=== PATIENT | female | born 1940 | race Caucasian/White ===

== ENCOUNTER → 2018-10-03 10:38 | Outpatient (CLI) | payer MEDICARE ==
--- NOTE | 2018-10-03 18:07 | EC ---
PATIENT:WALESKA HOUGH DATE OF SERVICE: 10/03/18 SEX: F MEDICAL RECORD: [id number] DATE OF : 40 LOCATION:[facility] AGE OF PATIENT: 77 ADMISSION DATE: 10/03/18 REFERRING PHYSICIAN: INTERPRETING PHYSICIAN: NAM GONZALEZ MD ECHOCARDIOGRAM REPORT ECHO CHARGES 4 ECHO COMPLETE Date: 10/03/18 CLINICAL DIAGNOSIS: ANGINA/OLIVER/SOB/MURMUR H/O HTN ECHOCARDIOGRAPHIC MEASUREMENTS (adult normal given) AC root (d.<3.7cm) 2.8 cm LV Septum d (<1.2 cm> 1.5 cm Valve Excursion 1.8 cm LV Septum (systole) 1.8 cm Left Atria (s.<4.0cm> 4.1 cm LVPW d(<1.2cm) 0.9 cm RV (d.<2.3cm) 2.2 cm LVPW (sytole) 1.4 cm LV diastole(<5.6CM) 5.1 cm MV E-F(>70mm/sec) cm LV systole 3.2 cm LVOT Diameter 1.8 cm MV exc.(>10mm) cm Est.ejection fraction (50-75%) % DOPPLER: LVIT cm/sec A 50.0 cm/sec E 78.0 cm/sec LA cm/sec RVSP 49.0 mmHg LVOT 78.0 cm/sec AOP1/2T 882.0m/s Asc. Ao 151 cm/sec RVOT 36.0 cm/sec RA cm/sec PA 63.0 cm/sec AV Gradient Peak 9.1 mmHg AV Mean 4.6 mmHg AV Area 1.3 cm MV Gradient Peak 2.7 mmHg MV Mean 0.87 mmHg MV Area cm COMMENTS: OP - HC Farm Machinery Mechanic: 1 HOSSEIN RIVASOE Identity Access Management Architect: 1 Dr. Gonzalez TAPE# PACS Pericardial Effusion N DATE OF SERVICE: 10/03/2018 FINDINGS: 1. Left ventricular chamber size is within normal limits. Left ventricular systolic function is normal. Overall ejection fraction is estimated at 55%. 2. Left atrium is enlarged at 4.1 cm. Right atrium and right ventricular chamber sizes are as well mildly dilated. 3. Valvular structures have normal structure and motion. 4. Doppler interrogation reveals moderate aortic insufficiency, moderate mitral regurgitation, and moderate tricuspid regurgitation. No other valvular ECHOCARDIOGRAM REPORT [id number] HOUGH,WALESKA insufficiency or stenosis. Pulmonary systolic pressure is estimated at 49 mmHg. 5. No evidence of pericardial effusion or left ventricular thrombus. TRANSINT:[id number] Voice Confirmation ID: [id number] DOCUMENT ID: [id number] NAM GONZALEZ MD at 1807 CC: [id number] DICTATION DATE: 10/03/18 1630 CUTTING MACHINE TENDER: 10/03/18 1739 [facility] [address] [id number]
--- NOTE | 2018-10-08 09:50 | ST ---
PATIENT:WALESKA HOUGH MEDICAL RECORD: [id number] SEX: F LOCATION:[facility] ORDER #: ADMISSION DATE: 10/03/18 AGE OF PATIENT: 77 REFERRING PHYSICIAN: INTERPRETING PHYSICIAN: NAM GOLDEN MD DATE OF SERVICE: 10/03/2018 PROCEDURE: Nuclear stress test. INDICATION: Angina, shortness of breath, hypertension, hyperlipidemia. She was exercised on standard Lexiscan protocol with 33 mCi of sestamibi injected at peak stress, 11 mCi used previously for rest images. FINDINGS: Gated SPECT reveals a preserved ejection fraction at 67% with good wall motioning and thickening and brightening throughout all segments. SPECT imaging: Cardiolite was used as myocardial perfusion agent. There is reversibility anteroapically. This includes the basal, mid, apical, anterior segments as well as the apex itself. The degree of reversibility is mild to moderate. The amount of myocardium involved is moderate. OVERALL IMPRESSION: 1. This is an intermediate risk abnormal nuclear stress test, reversible ischemia anteroapically. 2. Gated SPECT reveals preserved ejection fraction at 67%. In this patient with ongoing symptomatology, the current scan does suggest the presence of hemodynamically significant coronary artery disease. TRANSINT:[id number] Voice Confirmation ID: [id number] DOCUMENT ID: [id number] NAM GOLDEN MD at 0950 CC: [id number] DICTATION DATE: 10/03/18 1644 MECHANICAL MAINTENANCE FOREMAN: 10/04/18 0901 DEP CLI 10/03/18 [place] [id number]
== END | disposition home or self-care (01) ==
LOC: D.HCCARDIO 10:38
PROVIDERS: ATTEND Internal Medicine Interventional Cardiology
DX: I20.9 Angina pectoris, unspecified (principal)

== ENCOUNTER 2018-10-15 07:28 | Outpatient (CLI) | payer MEDICARE ==
[~2018-10-15] VITALS: Ht 157.5 cm; Wt 72.7 kg
--- NOTE | ~2018-10-15 | HEMODYNAMI ---
PATIENT:WALESKA HOUGH MEDICAL RECORD: [id number] : 40 LOCATION:[facility] ADMISSION DATE: 10/15/18 Generatedon:10/15/201811:19 Patient name: WALESKA HOUGH Patient #: [id number] SSN: : 1940 Date of study: 10/15/2018 Page: Of Hemodynamic Procedure Report Patient Data Patient Demographics Procedure consent was obtained First Name: WALESKA Gender: Female Last Name: FR[place] : 1940 Patient #: [id number] Age: 77 year(s) Race: Unknown Additional ID: [id number] Contact details [address]: [address] [place] [address] rd State: [place] City: [place] Zip code: [address] Past Medical History Allergies Allergen Reaction Date Comments Reported Other allergy 10/15/2018 PCN Admission Admission Data Admission Date: 10/15/2018 Admission Time: 7:28 Height (in.): 61.81 BSA: 1.73 (m2) Height (cm.): 157 BMI: 29.21 (kg/m2) Weight (lbs.): 158.73 Weight (kg.): 72 Lab Results Lab Result Date: 10/15/2018 Lab Result Time: 0:00 Biochemistry Name Units Result Min Max BUN mg/dl 23 --(----)-* 7 18 Creatinine mg/dl 0.9 --(-*--)-- 0.6 1.3 Procedure Procedure Types Cath Procedure Diagnostic Procedure LHC LH w/Coronaries FFR/IVUS Intra-Coronary IVUS Initial Procedure Description Procedure Date Procedure Date: 10/15/2018 Procedure Start Time: 11:05 Procedure End Time: 11:17 Procedure Staff Name Function Michi Gonzalez MD Performing Physician Racheal Anderson RT Monitor Hyacinth Bennett RN Nurse Denise Yusuf RT Scrub Procedure Data Cath Procedure Fluoroscopy Diagnostic fluoroscopy Total fluoroscopy Time: 2.9 time: 2.9 min min Diagnostic fluoroscopy Total fluoroscopy dose: 412 dose: 412 mGy mGy Contrast Material Contrast Material Type Amount (ml) Isovue 300 65 Entry Location Entry Primary Successful Side Size Upsize Upsize Entry Closure Succes sful Closure Location (Fr) 1 (Fr) 2 (Fr) Remarks Device Remarks Femoral Right 5 Fr 6 Fr artery Short Estimated blood loss: 10 ml Diagnostic catheters Device Type Used For End Catheter Placement MULTIPACK Pigtail 5 Fr Procedure catheter MULTIPACK JL 4.0 5Fr Procedure catheter MULTIPACK 3DRC 5Fr Procedure catheter Procedure Complications No complications Procedure Medications Medication Administration Route Dosage 0.9% NaCl I.V. 100 ml/hr Oxygen etCO2 Nasal cannula 2 l/min Lidocaine 2% added to field 20 Heparin Flush Bag added to field 2 bags (1000units/500ml NS) Versed I.V. 2 mg Fentanyl I.V. 50 mcg Fentanyl I.V. 50 mcg Hemodynamics Rest BSA: 1.73 (m2) O2 Consumption: Estimated: 144.69 (ml/min) O2 Consumption indexed : Estimated:83.64 (ml/min/m) Heart Rate: 52 (bpm) Pressure Samples Time Site Value (mmHg) Purpose Heart Use Rate(bpm) 11:06 LV 102/4,13 Snapshot 81 11:07 AO 103/57(79) Pullback 73 Gradients Valve Time Site Site 2 Mean SEP/DFP Peak To Heart Use 1 (mmHg) (sec/min) Peak Rate (mmHg) (bpm) Aortic 11:07 LV AO 73 103/57(79) Snapshots Pre Cath Intra NCS Post Cath Vital Signs Time Heart Resp SPO2 etCO2 NIBP (mmHg) Rhythm Pain Sedation Rate (ipm) (%) (mmHg) Status Level (bpm) 10:47:13 54 18 99 34.5 Measuring SB 0 (11) 10(A) , No pain 10:47:31 52 17 100 31.5 145/69(112) SB 0 (11) 10(A) , No pain 10:51:52 62 17 100 3.7 153/76(128) SB 0 (11) 10(A) , No pain 10:55:59 57 18 99 13.4 121/72(98) SB 0 (11) 10(A) , No pain 11:00:13 52 18 99 17.2 128/71(97) SB 0 (11) 10(A) , No pain 11:04:23 64 17 99 8.9 110/76(101) SB 0 (11) 10(A) , No pain 11:09:22 65 19 98 36.7 Measuring SB 0 (11) 10(A) , No pain 11:09:37 62 18 98 37.5 118/65(87) SB 0 (11) 10(A) , No pain 11:13:51 60 11 99 30.8 109/67(83) SB 0 (11) 10(A) , No pain Medications Time Medication Route Dose Verified Delivered Reason Notes Eff ectiveness by by 10:48:03 0.9% NaCl I.V. 100 Michi Hyacinth used for ml/hr Carlos Bennett safety professional 10:48:11 Oxygen etCO2 2 Michi Hyacinth used for Nasal l/min Carlos Bennett procedure cannula RN 10:48:16 Lidocaine 2% added 20ml Michi Michi for local to vial Carlos Gonzalez MD anesthetic field 10:48:21 Heparin Flush added 2 Michi Michi used for Bag to bags Carlos Gonzalez MD procedure (1000units/500ml field NS) 11:03:57 Versed I.V. 2 mg Michi Hyacinth for Carlos Bennett sedation RN 11:04:03 Fentanyl I.V. 50 Michi Hyacinth for mcg Carlos Bennett sedation RN 11:09:47 Fentanyl I.V. 50 Michi Hyacinth for mcg Carlos Bennett sedation site leader Log Time Note 10:33:36 Patient Height : 61.81 inches 10:33:40 Patient Weight : 158.73 lbs 10:34:21 Lab Result : BUN 23 mg/dl 10:34:21 Lab Result : Creatinine 0.9 mg/dl 10:34:50 Diagnostic Cath status Elective 10:34:52 Denise Yusuf RT(R) sent for patient. Start room use. 10:34:54 Time tracking: Regular hours (M-F 7:00 - 5:00) 10:34:59 Plan of Care:Hemodynamics will remain stable., Cardiac rhythm will remain stable., Comfort level will be maintained., Respiratory function will remain adequate., Patient/ family verbilizes understanding of procedure., Procedure tolerated without complication., Recovers from procedure without complications.. 10:35:37 2) 60-89 Mildly reduced kidney function, and other findings (as for stage 1) point to kidney disease. 10:35:58 Maximum allowable contrast does (3.7 X eGFR X 0.75)216 ml. 10:45:25 Vital chart was started 10:48:03 0.9% NaCl 100 ml/hr I.V. was administered by Hyacinth Bennett RN; used for procedure; 10:48:11 Oxygen 2 l/min etCO2 Nasal cannula was administered by Hyacinth Bennett RN; used for procedure; 10:48:16 Lidocaine 2% 20ml vial added to field was administered by Michi Gonzalez MD; for local anesthetic; 10:48:21 Heparin Flush Bag (1000units/500ml NS) 2 bags added to field was administered by Michi Gonzalez MD; used for procedure; 10:49:07 Patient received from Pre/Post Procedure Room to CCL 2 Alert and oriented. Tansferred to table in Supine position. 10:49:08 Warm blankets applied, and mina hugger turned on for patient comfort. 10:49:09 Correct patient and procedure confirmed by team. 10:49:10 Signed procedure consent form obtained from patient. 10:49:11 ECG and BP/O2 sat monitors applied to patient. 10:49:14 Baseline sample Acquired. 10:49:20 Rhythm: sinus rhythm 10:49:22 Full Disclosure recording started 10:49:56 H&P Date Dictated: 10/03/2018 Within 30 days and on chart.. 10:50:14 Pre-procedure instructions explained to patient. 10:50:17 Family in waiting room. 10:50:19 Patient NPO since Midnight. 10:50:30 Patient allergic to Other allergyPCN 10:50:33 Is the patient allergic to Iodine/contrast media? No. 10:50:40 Is patient on blood thinner?No 10:50:54 Patient diabetic? No. 10:51:00 Snore? Yes 10:51:02 Sleep apnea? No 10:51:26 IV patent on arrival in left forearm with 0.9% NaCl at [facility]. 10:51:30 Lab results completed and on chart. 10:51:34 Right groin area was prepped with chlora-prep and draped in sterile fashion 10:51:36 Alarms reviewed by R. N. 10:51:36 Sharps counted by scrub and verified by R.N. 10:51:37 Physician paged 10:57:50 Zero performed for pressure channel P1 11:03:11 Physician arrived 11:03:11 --------ALL STOP TIME OUT------ 11:03:12 Final Timeout: patient, procedure, and site verified with staff and physician. All members of the team are in agreement. 11:03:14 Right groin site verified by team. 11:03:22 Fire Safety Assessment: A--An alcohol-based skin anteseptic being used preoperatively., C--Open oxygen or nitrous oxide is being used., D--An ESU, laser, or fiber-optic light is being used. 11:03:30 Physical assessment completed. ASA score P 3 - A patient with severe systemic disease as per Michi Gonzalez MD. 11:03:36 Sedation plan: IV Moderate Sedation Medication:Versed, Fentanyl 11:03:57 Versed 2 mg I.V. was administered by Hyacinth Bennett RN; for sedation; 11:04:03 Fentanyl 50 mcg I.V. was administered by Hyacinth Bennett RN; for sedation; 11:04:57 Use device set Femoral Dx 11:04:58 ACIST Syringe (18654) opened to sterile field. 11:04:59 Bag Decanter (2002S) opened to sterile field. 11:05:00 Medline Cath Pack ([id number]) opened to sterile field. 11:05:01 ACIST Hand Control (85331) opened to sterile field. 11:05:02 ACIST Manifold (25325) opened to sterile field. 11:05:04 DIAGNOSTIC Multipack 5Fr catheter set (FY9657) opened to sterile field. 11:05:05 Tegaderm 4 x 4 (1626W) opened to sterile field. 11:05:07 SHEATH 5FR Raymond (RXS640) opened to sterile field. 11:05:08 EMERALD Guide Wire (694-423) opened to sterile field. 11:05:10 Procedure started. 11:05:53 Local anesthetic to right femoral artery with Lidocaine 2% by Michi Gonzalez MD.INITIAL ACCESS ONLY 11:06:04 A 5 Fr sheath was inserted into the Right Femoral artery 11:06:11 J wire advanced. 11:06:19 A MULTIPACK Pigtail 5 Fr catheter was advanced over the wire and used for Procedure. 11:06:53 LV angiography performed. 11:06:59 EF : 50 % 11:07:01 Catheter removed. 11:07:10 A MULTIPACK JL 4.0 5Fr catheter was advanced over the wire and used for Procedure. 11:07:24 LCA angiography performed. 11:08:55 A MULTIPACK 3DRC 5Fr catheter was advanced over the wire and used for Procedure. 11:08:59 RCA angiography performed. 11:09:43 Catheter removed. 11:09:47 Fentanyl 50 mcg I.V. was administered by Hyacinth Bennett RN; for sedation; 11:10:14 Dexter [place] IVUS Catheter (51144N) opened to sterile field. 11:10:15 SHEATH 6FR Raymond (DBZ004) opened to sterile field. 11:10:16 CHOICE PT Extra Support 182cm wire ([id number]) opened to sterile field. 11:10:17 INFLATOR Merit BasixCompak (OP0856) opened to sterile field. 11:10:48 Sheath upsized to a 6 Fr Short. 11:10:53 6 Fr XBLAD3.5 guide catheter was inserted over the wire 11:11:35 choice pt ex wire advanced. 11:11:54 Wire advanced across lesion. 11:12:07 IVUS catheter advanced over wire. 11:13:23 IVUS catheter removed over wire. 11:13:40 EXOSEAL 6Fr (EX600) opened to sterile field. 11:13:58 Procedure ended.(Physican Out) 11:14:35 Fluoroscopy time 02.90 minutes. 11:14:39 Fluoroscopy dose: 412 mGy 11:14:39 Flurop Dose total: 412 11:14:43 Contrast amount:Isovue 300 65ml. 11:14:45 Sharps counted by scrub and verified by R.N. 11:14:47 Insertion/operative site no bleeding no hematoma. 11:14:54 Post-op/insertion site Right Femoral artery dressed using a 4 x 4 and Tegaderm. 11:14:59 Post Procedure Pulses reassessed and unchanged 11:15:02 Post-procedure physical assessment completed. ASA score P 2 - A patient with mild systemic disease as per Michi Gonzalez MD. 11:15:08 Post procedure rhythm: unchanged. 11:15:11 Estimated blood loss: 10 ml 11:15:13 Post procedure instruction explained to patient.Patient verbalizes understanding. 11:15:32 Procedure type changed to Cath procedure, Diagnostic procedure, LHC, LHC w/Coronaries, FFR/IVUS, Intra-Coronary IVUS Initial 11:15:41 Procedure and supply charges have been captured, reviewed, submitted and are correct. 11:16:56 Procedure Complication : No complications 11:16:59 Vital chart was stopped 11:17:00 See physician's report for complete and final results. 11:17:01 Report given to Pre/Post Procedure Room. 11:17:10 Patient transfered to Pre/Post Procedure Room with Stretcher. 11:17:13 Procedure ended. 11:17:13 Full Disclosure recording stopped 11:17:16 End room use (Document Last) Device Usage Item Name Manufacture Quantity Catalog Number Hospital Part Current Minim al Lot# / Charge Number Stock Stock Serial# Code ACIST Acist 1 19232 [id number] 324554 836319 20 Syringe Medical (17737) Systems Inc Bag Microtek 1 290572 77100 785266 5 Decanter Medical Inc. () Medline Medline 1 [id number] 239550 36998 580050 5 Cath Pack ([id number]) ACIST Hand Acist 1 84709 023650 697955 193151 5 Control Medical (13042) Systems Inc ACIST Acist 1 39344 914531 786201 405593 5 Manifold Medical (48639) Systems Inc DIAGNOSTIC Cardinal 1 [id number] 798853 58533 346309 30 Multipack Health 5Fr catheter set (DA8152) Tegaderm 4 3M 1 1626W 193812 995828 347207 5 x 4 (1626W) SHEATH 5FR Terumo 1 IBV809 968826 869904 890230 5 Raymond (FXJ615) EMERALD Cardinal 1 502-455 024138 394590 868336 5 Guide Wire Health (502-455) MULTIPACK Cardinal 1 031428 5 Pigtail 5 Health Fr catheter MULTIPACK Cardinal 1 331489 5 JL 4.0 5Fr Health catheter MULTIPACK Cardinal 1 096373 5 3DRC 5Fr Health catheter Dexter Dexter 1 10350N 993604 076328 747378 8 [place] IVUS Catheter (10255U) SHEATH 6FR Terumo 1 WUK707 324315 854809 561171 40 Raymond (VUI609) CHOICE PT [place] 1 [id number] 308548 415914 305731 5 Extra Scientific Support 182cm wire ([id number]) INFLATOR Merit 1 ZR4273 716833 252015 892912 15 [facility] Medical BasixCompak (SO0227) EXOSEAL 6Fr Cardinal 1 EX600 132053 730187 813341 10 (EX600) Health Signature Audit [place] Stage Time Signature Unsigned Intra-Procedure 10/15/2018 Racheal Anderson 11:19:31 AM RT(R) Signatures Monitor : Racheal Anderson Signature : RT Date : Time : [id number] [place] [address]
--- NOTE | ~2018-10-15 | OP ---
PATIENT NAME: WALESKA HOUGH MEDICAL RECORD: [id number] :40 LOCATION:[facility] ADMISSION DATE: SURGEON: NAM GOLDEN MD DATE OF OPERATION: 10/15/2018 PROCEDURES: 1. Left heart catheterization. 2. Selective coronary angiography. 3. Left ventriculogram. 4. Intravascular ultrasound. INDICATION: Angina, abnormal nuclear stress test, coronary artery disease. PROCEDURE PERFORMED: After informed consent was obtained with detailed explanation of risks and benefits as well as alternative therapies, the patient elected to proceed with angiogram and heart catheterization. The right femoral area was prepped and draped in normal sterile fashion. The right femoral artery was cannulated via modified Seldinger technique with placement of 6-Yi sheath. All catheters were exchanged through this sheath. FINDINGS: Left ventriculogram performed in standard 30-degree MOTA view reveals good cardiac wall motion. Ejection fraction 55%. SELECTIVE CORONARY ANGIOGRAPHY: 1. Left main is with no significant angiographic disease. 2. Left anterior descending has a questionable area of stenosis; however, intravascular ultrasound reveals that there is nothing greater than 20% throughout this area. 3. Left circumflex has mild irregularities, but no flow-limiting stenosis. 4. Right coronary has moderate irregularities, but no flow-limiting stenosis. OVERALL IMPRESSION: Minimal coronary artery disease is present. No flow-limiting stenosis. TRANSINT:[id number] Voice Confirmation ID: [id number] DOCUMENT ID: [id number] NAM GOLDEN MD CC: [id number] DICTATION DATE: 10/15/18 1122 CHRONIC CONDITION NURSE: 10/15/18 1143 [facility] [address] [place] [address]
[2018-10-15] MEDS ORDERED: LISINOPRIL-HCT1 EAC8 PO (08:29)
[2018-10-15] MEDS ORDERED: TOPROL XL50 MG PO (08:29)
[2018-10-15] MEDS ORDERED: ZOCOR40 MG PO (08:29)
[2018-10-15] MEDS ORDERED: BAYER CHEWABLE81 MG PO (08:30)
[2018-10-15 08:42] VITALS: BP 132/66; Ht 157.5 cm; Wt 72.7 kg
[2018-10-15 08:48] LABS: BASOPHILS 0.2 % (0-2); HEMATOCRIT 38.6 % (36.0-48.0); HEMOGLOBIN 12.6 g/dL (12-16); IMMATURE GRANULOCYTES 0.2 % (0-5); LYMPHOCYTES 46.7 % (15-50); MCH 27.5 pg (26.0-34.0); MCHC 32.6 g/dL (31.0-37.0); MCV 84.3 fL (80.0-100.0); MEAN PLATELET VOLUME 9.2 fL (7.4-10.4); MONOCYTES 7.3 % (2-11); NEUTROPHILS 42.6 % (40-80); PLATELET COUNT 223 10x3/uL (130-400); RBC 4.58 10x6/uL (4.00-5.40)
[2018-10-15 09:01] LABS: ANION GAP 9.3 mmol/L (8-16); CALCIUM 8.9 mg/dL (8.5-10.1); CARBON DIOXIDE 31.6 mmol/L (21.0-32.0); CREATININE - SERUM 0.9 mg/dL (0.6-1.3); POTASSIUM - SERUM 3.9 mmol/L (3.5-5.1)
--- NOTE | 2018-10-15 11:30 | NUR ---
PT ARRIVED BY STRETCHER. PLACED ON MONITOR. ASSESSMENT COMPLETED. FAMILY AT BEDSIDE. CALL LIGHT WITHIN REACH.
--- NOTE | 2018-10-15 11:45 | NUR ---
PT RESTING COMFORTABLY. VSS. FAMILY AT BEDSIDE. CALL LIGHT WITHIN REACH. RIGHT GROIN DRESSING C/D/I. NO S/S OF HEMATOMA NOTED.
--- NOTE | 2018-10-15 12:15 | NUR ---
DR. GOLDEN ROUNDED AND SPOKE WITH PT AND PT'S FAMILY. PT RESTING COMFORTABLY. RIGHT GROIN DRESSING C/D/I. NO S/S OF HEMATOMA NOTED.
--- NOTE | 2018-10-15 12:30 | NUR ---
RIGHT GROIN DRESSING C/D/I. NO S/S OF HEMATOMA NOTED. VSS. CALL LIGHT WITHIN REACH. FAMILY AT BEDSIDE. PT'S HEAD OF BED INC TO 30 DEGREES. TOLERATED WELL. STILL VERY SLEEPY FROM SEDATION. WILL MONITOR.
--- NOTE | 2018-10-15 13:15 | NUR ---
PT MORE ALERT. LEFT ARM PIV D/C'D WITH CATH TIP INTACT. PT TOLERATED WELL. ASSISTED IN GETTING PT DRESSED. SITTING UP IN CHAIR.
--- NOTE | 2018-10-15 13:20 | NUR ---
RIGHT GROIN DRESSING C/D/I. NO S/S OF HEMATOMA NOTED. DISCUSSED DISCHARGE INSTRUCTIONS WITH PT AND PT'S FAMILY. THEY VOICED UNDERSTANDING.
--- NOTE | 2018-10-15 13:30 | NUR ---
PT TAKEN OUT TO VEHICLE BY WHEELCHAIR. NO S/S OF DISTRESS NOTED. ALL BELONGINGS AND PAPEROWOR IN HAND.
== END 2018-10-15 13:30 | disposition home or self-care (01) ==
LOC: D.CATH 07:28
PROVIDERS: ATTEND Internal Medicine Interventional Cardiology
DX: I25.119 Atherosclerotic heart disease of native coronary artery with unspecified angina pectoris (principal); R94.30 Abnormal result of cardiovascular function study, unspecified